=== PATIENT | male | born 1960 | race Caucasian/White ===

== ENCOUNTER 2018-04-18 08:14 | Emergency (ER) | payer MEDICAID ==
[~2018-04-18] VITALS: Ht 160 cm; Wt 90.7 kg
--- NOTE | 2018-04-18 08:19 | NUR ---
PATIENT AMBULATED TO ER BED 3.
[2018-04-18 08:20] VITALS: BP 123/80
--- NOTE | 2018-04-18 08:29 | NUR ---
PT BIB SELF C/O HEADACHE 8/10 X 5 DAYS WITH [facility]. DENIES CP/SOB/NVD. NO OTHER COMPLAINTS. DENIES HX; NO MOTOR OR SPEECH DEFICITS NOTED. HX--NONE MEDS---NONE
--- NOTE | 2018-04-18 08:31 | NUR ---
DR. MOREL EVALUATING PATIENT.
[2018-04-18] MEDS ORDERED: traMADol 50 MG TAB PO ONE (08:35)
[2018-04-18] MEDS ORDERED: hydrOXYzine HCL 25 MG TAB PO ONE (08:35)
[2018-04-18 09:52] VITALS: BP 128/98
--- NOTE | 2018-04-18 09:52 | NUR ---
Patient discharged with v/s stable. Written and verbal after care instructions given and explained. Patient alert, oriented and verbalized understanding of instructions. Ambulatory with steady gait. All questions addressed prior to discharge. ID band removed. Patient advised to follow up with PMD. Rx of Fioricet, Azithromycin given. Patient educated on indication of medication including possible reaction and side effects. Opportunity to ask questions provided and answered.
== END 2018-04-18 09:52 | disposition home or self-care (01) ==
LOC: MED 08:14
DX: R51 Headache (principal)
CPT/HCPCS: 99283